=== PATIENT | male | born 1995 | race Caucasian/White ===

== ENCOUNTER 2017-10-10 15:59 | Emergency (ER) | payer BC ==
[2017-10-10] MEDS ORDERED: HYDROmorphONE/DILAUDID 1 MG/ML INJ ONE (16:06)
--- NOTE | 2017-10-10 16:08 | EDPHY ---
H & P HPI/ROS: CHIEF COMPLAINT: Right humerus pain HISTORY OF PRESENT ILLNESS: 25-year-old male arrives via ambulance, not a trauma activation, after he was hiking on a in icy trail, slipped and fell onto his right elbow . He is complaining of right distal humerus pain. He necessitated extrication via [facility]. He denies: Distal paresthesia, sensory motor deficit, denies head injury, midline C-spine pain, back pain, abdominal pain, genitalia or straddle injury. Last oral intake was breakfast today PRIMARY CARE PROVIDER: In [place] REVIEW OF SYSTEMS: A ten point review of systems was performed and is negative with the exception of the items mentioned in the HPI PAST MEDICAL/SURGICAL HISTORY: no anticoagulant use, no relevant medical/ surgical history SOCIAL HISTORY: denies alcohol use at time of incident PHYSICAL EXAM 1) GENERAL: Well-developed, well-nourished, alert and oriented. Appears uncomfortable. Answering questions appropriately. 2) HEAD: Normocephalic, atraumatic 3) HEENT: Pupils equal, round, reactive to light bilaterally. Negative Horners. Nasopharynx, oropharynx, clear. No deformity or angulation of nose. No septal hematoma. No rhinorrhea. No oral trauma. Ears bilaterally with normal tympanic membranes. No hemotympanum. No fluid or blood in the external auditory canal. No raccoon eyes. No Acuña sign. Teeth are normally aligned with no gross malocclusion, TMJ bilaterally nontender, facial bones nontender including the zygomatic arch, maxilla mandible. 4) NECK: No cervical collar is on. Posterior cervical spine is nontender, no stepoff, no effusion. Full range of motion which does not elicit any midline cervical spine pain, no posterior midline tenderness, no step-off. 5) LUNGS: Clear to auscultation bilaterally, no wheezes, no rhonchi, no retractions. No obvious signs of trauma. No chest wall pain. No flaring, no grunting. Moving symmetrically. No crepitus. 6) HEART: [Regular rate and rhythm, 7) ABDOMEN: No guarding, no rebound, no focal tenderness, no peritoneal signs , no signs of trauma, no ecchymosis 8) MUSCULOSKELETAL: Right upper extremity: Distal pulses intact, radial ulnar median nerve function intact, tender to palpation with soft tissue swelling noted at the distal humerus. Intact skin. No tenting. Soft compartments. Proximally in distally nontender. Otherwise, Moving all extremities, no focal areas of tenderness, no obvious trauma. 9) BACK: No midline vertebral tenderness, no fluctuance, no step-off, no obvious trauma, no visual or palpable abnormality. 10) SKIN: No laceration. No abrasion DIFFERENTIAL DIAGNOSIS: In no particular order including but not limited to fracture, sprain, strain, dislocation, compartment syndrome Constitutional: Initial Vital Signs Temperature (C) 36.9 C 10/10/17 16:14 Heart Rate 78 10/10/17 16:14 Respiratory Rate 18 10/10/17 16:14 Blood Pressure 131/78 H 10/10/17 16:14 O2 Sat (%) 94 10/10/17 16:14 O2 Delivery Mode Room Air Allergies/Adverse Reactions: No Known Allergies Allergy (Unverified 10/10/17 16:19) Home Medications: Medication Instructions Recorded Hydrocodone/APAP 5/325 [[place] 1 tab PO Q6 PRN #7 tab 10/10/17 5/325 (RX)] Medical Decision Making - Diagnostics Imaging Results: Imaging Impressions Humerus X-Ray 10/10/17 16:07 Impression: Comminuted and angulated distal humeral diaphyseal fracture. Images reviewed myself Procedures: Procedure: Splint A coaptation fiberglass splint and sling was applied by ER sheet metal technician. After application of the splint I returned and re-examined the patient. The splint was adequately immobilizing the joint and distal to the splint the patient's circulation and sensation were intact. Patient shows no signs of compartment syndrome. Was given orthopedic precautions. ED Course/Re-evaluation: Patient was re-evaluated with serial examinations. Orthopedics will be consulted. He remains NPO since breakfast today. Consultation with Orthopedics Dr. Alec Xiong at 5:40 p.m. who reviewed the patient's images remotely. He recommends that because it is a closed fracture, patient is neurovascular intact, lives in [place] and is returning tomorrow, that he could be splinted and followed up as soon as he gets back to [place] with Orthopedics. I discussed this with the patient, re-examined the patient he remains neurovascularly intact with no evidence of compartment syndrome. He has been splinted in given copies of his x-rays and importance of follow-up with orthopedics has been stressed on numerous instances. He has been given the name of local orthopedics should he decide to stay in [place] for a longer period of time. He feels comfortable being discharged. All questions and concerns addressed by myself. Care of patient under supervision of secondary supervising physician Dr Coa . - Data Points Medications Given: Discontinued Medications Hydrocodone Bitart/Acetaminophen ([place] 5/325) 2 tab PO EDNOW ONE Stop: 10/10/17 17:52 Last Admin: 10/10/17 17:54 Dose: 2 tab Hydromorphone HCl (Dilaudid) 1 mg IVP EDNOW ONE Stop: 10/10/17 16:11 Last Admin: 10/10/17 16:22 Dose: 1 mg Departure - Departure Disposition: Home, Routine, Self-Care Clinical Impression: Fall from slipping on ice Qualifiers: Encounter type: initial encounter Qualified Code(s): W00.9XXA - Unspecified fall due to ice and snow, initial encounter Right humeral fracture Qualifiers: Encounter type: initial encounter Humerus Location: distal Fracture type: closed Fracture morphology: other fracture Fracture alignment: displaced Qualified Code(s): S42.491A - Other displaced fracture of lower end of right humerus, initial encounter for closed fracture Condition: Good Instructions: Hydrocodone/Acetaminophen (By mouth), Arm Fracture in Adults (ED) Additional Instructions: Return to the ER immediately if you experience discoloration, have worsening pain, numbness, tingling, or any other symptoms that concern you. If you received x-rays in the emergency department today, be advised, that ligamentous , tendon, muscular, and other non-bony injury cannot be fully ruled out. Try to keep your affected extremity elevated above the level of your chest, and keep cold packs on the affected area, for the next 48 hours. Referrals: Alec Xiong MD [Medical Doctor] - 1-2 days without fail (Follow up with orthopedic surgeon in [place] as soon as you get back) Prescriptions: Hydrocodone/APAP 5/325 [[place] 5/325 (RX)] 1 tab PO Q6 PRN #7 tab PRN Reason: Pain, Severe
[2017-10-10] MEDS ORDERED: HYDROmorphONE/DILAUDID 1 MG/ML INJ IVP ONE (16:10)
[2017-10-10] MEDS ORDERED: HYDROCOD/APAP 5/325 PREPACK#6 BTL TAKEHOME ONE (17:44)
[2017-10-10] MEDS ORDERED: HYDROCODONE/APAP 5/325 TAB PO ONE (17:51)
[2017-10-10 17:56] VITALS: RESP 16; O2SAT 97
[2017-10-10 18:53] VITALS: BP 135/85; PULSE 85; TEMP 98.1
== END 2017-10-10 18:45 | disposition home or self-care (01) ==
LOC: EDBD
DX: S42.491A Other displaced fracture of lower end of right humerus, initial encounter for closed fracture (principal); W00.0XXA Fall on same level due to ice and snow, initial encounter; Y92.89 Other specified places as the place of occurrence of the external cause; Y93.01 Activity, walking, marching and hiking
CPT/HCPCS: 96374; A4565; J1170

== ENCOUNTER 2017-10-11 05:48 | Emergency (ER) | payer BC ==
[2017-10-11 05:53] VITALS: BP 117/73; PULSE 73; RESP 20; TEMP 98.4; O2SAT 93
--- NOTE | 2017-10-11 05:58 | EDPHY ---
H & P Stated Complaint: right arm pain/swelling post cast 10/10/17 HPI/ROS: HPI CHIEF COMPLAINT: Right arm pain. HISTORY OF PRESENT ILLNESS: Patient very pleasant 22-year-old male, otherwise healthy he was seen here yesterday in the emergency room for fractured humerus mid shaft. He sustained this after falling and slipping on ice. He was splinted in a posterior long-arm splint. Comes back to the emergency room this morning as he thinks that the splint is too tight as he is having further discomfort around his mid shaft humerus. He denies any focal numbness or tingling denies any discoloration. States he thinks he needs his splint adjusted. Past Medical History: Denies medical history Past Surgical History: Denies surgical history Social History: Denies daily use drugs alcohol tobacco products. Family History: Noncontributory ROS REVIEW OF SYSTEMS: A comprehensive 10 point review of systems is otherwise negative aside from elements mentioned in the history of present illness. Exam Constitutional appears well nontoxic triage nursing summary reviewed, vital signs reviewed, awake/alert. Eyes normal conjunctivae and sclera, EOMI, PERRLA. HENT normal inspection, atraumatic, moist mucus membranes, no epistaxis, neck supple/ no meningismus, no raccoon eyes. Respiratory clear to auscultation bilaterally, normal breath sounds, no respiratory distress, no wheezing. Cardiovascular rate normal, regular rhythm, no murmur, no edema, distal pulses normal. Gastrointestinal soft, non-tender, no rebound, no guarding, normal bowel sounds, no distension, no pulsatile mass. Genitourinary no CVA tenderness. Musculoskeletal no midline vertebral tenderness, full range of motion, no calf swelling, no tenderness of extremities, no meningismus, good pulses, neurovascularly intact. Right upper extremity: Distally neurovascular intact good cap refill. Good pulse. Good risk management intern strength. No discoloration of his fingers. Warm extremity. Mild tender palpation around the mid shaft of the humerus. Splint does appear somewhat tight. Will remove the splint check for compartment syndrome. Skin pink, warm, & dry, no rash, skin atraumatic. Neurologic awake, alert and oriented x 3, AAOx3, moves all 4 extremities equally, motor intact, sensory intact, CN II-XII intact, normal cerebellar, normal vision, normal speech. Psychiatric normal mood/affect. Heme/Lymph/Immune no lymphadenopathy. Differential Diagnosis: Includes but is not limited to in a particular order splint readjustment, compartment syndrome, swelling from recent fracture Medical Decision Making: Plan for this patient splint takedown, evaluate for compartment syndrome, and then re-splint see if this is more comfortable. Re-evaluation: 0604: Splint is been taking down. He is neurovascular intact. Compartments are soft. No evidence of compartment syndrome. Patient has been re-splint posterior long-arm with sling. He is more comfortable in the new splint. Still recommend he follows up with Orthopedics. He is prescription for narcotic pain medicine I do recommend he gets filled today. Return precautions discussed with him. I recommend that you ice this. Source: Patient - Medical/Surgical History Hx Asthma: No Hx Chronic Respiratory Disease: No Hx Diabetes: No Hx Cardiac Disease: No Hx Renal Disease: No Hx Cirrhosis: No Hx Alcoholism: No Hx HIV/AIDS: No Hx Splenectomy or Spleen Trauma: No Other PMH: no surgeries or illnesses - Social History Smoking Status: Never smoked Constitutional: Initial Vital Signs Temperature (C) 36.9 C 10/11/17 05:51 Heart Rate 73 10/11/17 05:51 Respiratory Rate 20 10/11/17 05:51 Blood Pressure 117/73 10/11/17 05:51 O2 Sat (%) 93 10/11/17 05:51 Allergies/Adverse Reactions: No Known Allergies Allergy (Unverified 10/11/17 05:51) Home Medications: Medication Instructions Recorded Hydrocodone/APAP 5/325 [[place] 1 tab PO Q6 PRN #7 tab 10/10/17 5/325 (RX)] Departure - Departure Disposition: Home, Routine, Self-Care Clinical Impression: Arm fracture, right Qualifiers: Encounter type: initial encounter Fracture type: closed Qualified Code(s): S42.301A - Unspecified fracture of shaft of humerus, right arm, initial encounter for closed fracture Condition: Good Instructions: Arm Fracture in Adults (ED), Hydrocodone/Acetaminophen (By mouth) Additional Instructions: 1. Get your narcotic prescription filled. 2. Follow up with Orthopedics. 3. Return emergency room if there is any worsening pain questions or concerns. Referrals: NONE *PRIMARY CARE P,. [Primary Care Provider] - As per Instructions
[2017-10-11] MEDS ORDERED: HYDROCOD/APAP 5/325 PREPACK#6 BTL TAKEHOME ONE (06:31)
[2017-10-11] MEDS ORDERED: HYDROCODONE/APAP 10/325 TAB PO ONE (06:31)
[2017-10-11] MEDS ORDERED: HYDROCODONE/APAP 5/325 TAB ONE (06:40)
== END 2017-10-11 06:44 | disposition home or self-care (01) ==
DX: S42.301D Unspecified fracture of shaft of humerus, right arm, subsequent encounter for fracture with routine healing (principal); X58.XXXD Exposure to other specified factors, subsequent encounter